=== PATIENT | male | born 1985 | race Caucasian/White ===

== ENCOUNTER 2019-07-13 09:06 | Day surgery (SDC) | payer MEDICAID ==
[~2019-07-13] VITALS: Ht 170.2 cm; Wt 90.7 kg
[2019-07-13 09:41] LABS: BASOPHILS % (AUTO) 0.4 % (0.0-2.0); EOSINOPHILS # (AUTO) 0.4 K/uL (0-0.4); EOSINOPHILS % (AUTO) 4.4 % (0.0-4.0); HEMATOCRIT 49.9 % (36-52); HEMOGLOBIN 16.7 g/dL (12.0-18.0); LYMPHOCYTES % (AUTO) 25.2 % (20.5-51.1); MEAN CORPUSCULAR HEMOGLOBIN 31 pg (27-31); MEAN CORPUSCULAR HGB CONC 34 g/dL (33-37); MEAN CORPUSCULAR VOLUME 91.6 fL (80-94); MONOCYTES # (AUTO) 0.5 K/uL (0.8-1.0); MONOCYTES % (AUTO) 6.8 % (1.7-9.3); NEUTROPHILS % (AUTO) 63.2 % (42.2-75.2); PLATELET COUNT (AUTO) 296 K/uL (140-450); RED BLOOD CELL COUNT(AUTO) 5.44 MIL/uL (4.20-6.10); RED CELL DISTRIBUTION WIDTH 14.3 % (11.6-13.7)
[2019-07-13 10:00] LABS: ALBUMIN 4.2 g/dL (3.4-5.0); ANION GAP 11.3 (8-16); CARBON DIOXIDE 30.8 mmol/L (21-32); CREATININE 0.9 mg/dL (0.6-1.3); POTASSIUM 4.1 mmol/L (3.5-5.1); TOTAL BILIRUBIN 0.8 mg/dL (0.0-1.0)
[2019-07-13] MEDS ORDERED: BUPIVACAINE-MPF/EPI 0.25% 30 ML VIAL INJ ONE (10:28)
[2019-07-13] MEDS ORDERED: PROPOFOL 200 MG/20 ML VIAL IV ONE (10:38)
[2019-07-13] MEDS ORDERED: KETOROLAC 30 MG/ML VIAL ONE (10:38)
[2019-07-13] MEDS ORDERED: GLYCOPYRROLATE 1 MG TAB ONE (10:38)
[2019-07-13] MEDS ORDERED: DESFLURANE 240 ML BTL INH ONE (10:38)
[2019-07-13] MEDS ORDERED: SUCCINYLCHOLINE CHLORIDE 200 MG/10 ML VIAL IVP ONE (10:38)
[2019-07-13] MEDS ORDERED: DEXAMETHASONE 4 MG/ML VIAL ONE (10:38)
[2019-07-13] MEDS ORDERED: ONDANSETRON 4 MG/2 ML VIAL ONE (10:38)
[2019-07-13] MEDS ORDERED: NEOSTIGMINE 1:1000 10 MG/10 ML VIAL ONE (10:38)
[2019-07-13] MEDS ORDERED: LACTATED RINGERS 1,000 ML IV SCH (11:25)
[2019-07-13] MEDS ORDERED: MEPERIDINE 25 MG/ML SYR IVP PRN (11:25)
[2019-07-13] MEDS ORDERED: ONDANSETRON 4 MG/2 ML VIAL IVP PRN ×2 (11:25→12:50)
[2019-07-13] MEDS ORDERED: HYDROmorphone PFS 2 MG/ML SYR ONE (12:39)
[2019-07-13] MEDS: HYDROmorphone 1 MG/ML AMP IVP PRN ×4 (12:40→13:10)
[2019-07-13] MEDS ORDERED: MORPHINE SULFATE 2 MG/ML SYR IVP PRN (12:50)
[2019-07-13] MEDS ORDERED: HYDROmorphone 1 MG/ML AMP IVP PRN (12:50)
[2019-07-13] MEDS ORDERED: HYDROcodone/APAP 5/325 MG 1 TAB TAB PO PRN (12:50)
[2019-07-13] MEDS ORDERED: DEXT 5% /NACL 0.9% 1,000 ML IV SCH (12:50)
[2019-07-13] MEDS ORDERED: MORPHINE SULFATE 4 MG/ML SYR IV PRN (12:50)
== END 2019-07-13 16:25 | disposition home or self-care (01) ==
LOC: MDS 09:06 → MMU 09:06 → MDS 16:25
PROVIDERS: ATTEND Surgery
DX: K80.12 Calculus of gallbladder with acute and chronic cholecystitis without obstruction (principal); E66.3 Overweight
CPT/HCPCS: 36415; 47562; 49585; 71045; 80053; 82374; 85025; 86886; 86900; 86901; J0330; J0690; J1100; J1170; J1885; J2405; J2704; J2710; J3490; J7030; J7060; J7120; 88304